=== PATIENT | male | born 1975 | race Caucasian/White ===

== ENCOUNTER 2023-10-28 10:08 | Emergency (ER) | payer BC ==
[~2023-10-28] VITALS: Ht 195.6 cm; Wt 84.0 kg
[2023-10-28 10:12] VITALS: O2SAT 100
[2023-10-28] MEDS ORDERED: KETOROLAC 30MG/ML VIAL IV STA (10:18)
[2023-10-28] MEDS ORDERED: ONDANSETRON HCL 4MG/2ML INJ IV STA (10:18)
[2023-10-28 10:25] LABS: BASOPHILS % 0.6 % (0.0-2.0); EOSINOPHILS % 2.7 % (0.0-5.0); HEMATOCRIT. 47.5 % (42.0-52.0); HEMOGLOBIN. 16.1 g/dL (14.0-18.0); LYMPHOCYTES % 42.2 % (20.0-50.0); MEAN CORPUSCULAR HEMOGLOBIN 29.4 pg (28.0-32.0); MEAN CORPUSCULAR HGB CONC 33.9 g/dL (31.0-37.0); MEAN CORPUSCULAR VOLUME 86.9 fL (80.0-94.0); MEAN PLATELET VOLUME 7.7 fl (7.4-10.4); MONOCYTES % 9.5 % (2.0-8.0); PLATELET 222 x1000/uL (130-400); RED BLOOD CELL COUNT 5.46 mill/uL (4.7-6.1); RED CELL DISTRIBUTION WIDTH 14.1 % (11.6-14.6); WHITE BLOOD COUNT 5.5 x1000/uL (4.5-11.0)
[2023-10-28 10:30] LABS: CHLORIDE 106 mEq/L (98-107); SODIUM 139 mEq/L (136-145)
[2023-10-28 10:32] LABS: CARBON DIOXIDE 25 mEq/L (21-32)
[2023-10-28 10:33] LABS: CALCIUM 8.9 mg/dL (8.7-10.4)
[2023-10-28 10:37] LABS: CREATININE 1.1 mg/dL (0.6-1.3); GLUCOSE 113 mg/dL (70-105)
[2023-10-28 10:38] LABS: UREA NITROGEN BLOOD 16 mg/dL (9-23)
[2023-10-28 10:39] LABS: ALANINE AMINOTRANSFERASE 15 IU/L (10-49); ALBUMIN 4.3 g/dL (3.2-4.8); ASPARTATE AMINOTRANSFERASE 20 IU/L (<34)
[2023-10-28 10:40] LABS: BILIRUBIN TOTAL 1.2 mg/dL (0.1-1.0); PROTEIN TOTAL 6.5 g/dL (6.0-8.3)
[2023-10-28] MEDS: ONDANSETRON HCL 4MG/2ML INJ IV NR (12:53)
[2023-10-28] MEDS: KETOROLAC 30MG/ML VIAL IV NR (12:53)
[2023-10-28] MEDS: SODIUM CHLORIDE 0.9% 1,000 ML IV ONE ×2 (12:55→15:53)
[2023-10-28 15:13] LABS: CLARITY URINE CLEAR (CLEAR); COLOR URINE YELLOW (YELLOW); GLUCOSE URINE NEGATIVE (NEGATIVE); KETONES URINE 1+ (NEGATIVE); LEUKOCYTE ESTERASE URINE NEGATIVE (NEGATIVE); NITRITE URINE NEGATIVE (NEGATIVE); OCCULT BLOOD URINE NEGATIVE (NEGATIVE); PROTEIN URINE NEGATIVE (NEGATIVE); SPECIFIC GRAVITY URINE 1.024 (1.005-1.030)
[2023-10-28] MEDS ORDERED: IBUP-2029 MT (15:29)
[2023-10-28] MEDS ORDERED: TAMS-11 MT (15:29)
[2023-10-28] MEDS ORDERED: HYDR-4001 MT (15:29)
[2023-10-28] MEDS: MORPHINE SULFATE 4 MG/ML INJ (FOR IV/IM USE) IV ONE (15:53)
[2023-10-28 15:54] VITALS: BP 131/78; PULSE 77; RESP 16; TEMP 98.3
== END 2023-10-28 16:00 | disposition home or self-care (01) ==
LOC: ER 10:08
DX: N20.0 Calculus of kidney (principal); N13.30 Unspecified hydronephrosis
CPT/HCPCS: 80053; 81003; 83690; 85025; 36415; 74176; 76770; 96361; 96374; 96375; 99285; J1885; J2405; J7030; Z7610 ×2; C1893